=== PATIENT | male | born 1990 | race Caucasian/White ===

== ENCOUNTER 2022-05-03 08:04 | Emergency (ER) | payer BC ==
[2022-05-03] MEDS ORDERED: Ketorolac Tromethamine 30 MG/ML VIAL ONE (08:34)
[2022-05-03 08:50] LABS: #Eosinphils 0.1 thou/uL (0.0-0.7); #Lymphocytes 1.7 thou/uL (1.20-3.40); #Monocytes 0.2 thou/uL (0.11-0.59); #Neutrophils 4.1 thou/uL (1.40-6.50); %Basophils 0.5 % (0.0-1.0); %Eosinophils 1.9 % (0.0-10.0); %Lymphocytes 27.2 % (21.0-51.0); %Monocytes 3.4 % (0.0-10.0); Hemoglobin 13.6 g/dL (14.0-18.0); Mean Corpuscular HGB CONC 31.9 g/dL (32.0-36.0); Mean Corpuscular Volume 87.8 fL (78.0-98.0); Mean Platelet Volume 8.4 fL (7.4-10.4); Platelet Count 224 thou/uL (130-400); RBC Distribution Width 12.8 % (11.5-14.5); Red Blood Cell (RBC) Count 4.87 mill/uL (4.70-6.10); White Blood Cell (WBC) Count 6.1 thou/uL (4.8-10.8)
[2022-05-03 09:09] LABS: ALT (SGPT) 63 U/L (8-55); AST (SGOT) 36 U/L (5-34); Alkaline Phosphatase 74 U/L (40-110); Anion Gap 14 mmol/L (10-20); BUN (Urea Nitrogen) 11 mg/dL (8.9-20.6); Bilirubin, Total 0.6 mg/dL (0.2-1.2); Calc. Creatinine Clearance 0 mL/min (70-130); Calcium 9.4 mg/dL (7.8-10.44); Carbon Dioxide 26 mmol/L (22-29); Chloride 105 mmol/L (98-107); Estimated GFR 116; Globulin 3.2 g/dL (2.4-3.5); Glucose 140 mg/dL (70-105); Lipase 33 U/L (8-78); Protein, Total 7.2 g/dL (6.0-8.3); Sodium 141 mmol/L (136-145)
[2022-05-03 11:40] LABS: Bacteria/HPF None Seen HPF (None Seen); Bilirubin Negative (Negative); Blood, Urine 3+ (Negative); Clarity Clear (Clear); Glucose, Urine (Dipstick) Normal (Negative); Ketone, Urine Negative (Negative); Leukocyte Negative Leu/uL (Negative); Nitrite Negative (Negative); Protein, Urine (Dipstick) Negative (Neg-Trace); RBC/HPF 21-50 HPF (0-3); Specific Gravity, Urine 1.021 (1.002-1.036); Squamous Epithelial None Seen HPF (0-3); Urobilinogen Normal mg/dL (Less than 2); WBC/HPF 0-3 HPF (0-3)
== END 2022-05-03 12:40 | disposition home or self-care (01) ==
LOC: ERS 08:04
DX: N20.2 Calculus of kidney with calculus of ureter (principal); F17.220 Nicotine dependence, chewing tobacco, uncomplicated
CPT/HCPCS: 74176; 80053; 81003; 81015; 83690; 85025; J1885

== ENCOUNTER 2023-03-21 17:30 | Outpatient (CLI) | payer BC | END 2023-03-21 17:31 | disposition home or self-care (01) | LOC: SLEEPLAB 17:30 | PROVIDERS: ATTEND Internal Medicine Critical Care Medicine | DX: G47.33 Obstructive sleep apnea (adult) (pediatric) (principal); R53.83 Other fatigue; R40.0 Somnolence; R09.89 Other specified symptoms and signs involving the circulatory and respiratory systems; R06.83 Snoring; G47.00 Insomnia, unspecified | CPT/HCPCS: 95800 ==